=== PATIENT | male | born 1990 | race Caucasian/White ===

== ENCOUNTER 2021-06-16 19:37 | Emergency (ER) | payer BC ==
[~2021-06-16] VITALS: Ht 185.4 cm; Wt 95.3 kg
[2021-06-16 19:40] VITALS: BP_SYST 158
--- NOTE | 2021-06-16 19:40 | NUR ---
Placed in room 07 . Placed on scarfer operator, blood pressure machine and pulse oximeter. To gown for exam. Side rails up. will assume all care of patient.
--- NOTE | 2021-06-16 19:42 | NUR ---
Patient complaining of diffuse rash starting 1 hour prior to arrival after eating pepperoni pizza. Patient reports no allergies. Denies any shortness of breath, chest pain. Able to speak full sentences. Denies any pain
--- NOTE | 2021-06-16 19:44 | NUR ---
ER Dr. Andrew at bedside examining patient.
[2021-06-16] MEDS ORDERED: DIPHENHYDRAMINE INJ 50 MG/ML VIAL IVP ONE (19:45)
[2021-06-16] MEDS ORDERED: methylPREDNISolone SOD SUCC/PF 62.5 MG/ML VIAL IVP ONE (19:45)
[2021-06-16] MEDS ORDERED: FAMOTIDINE PF 20 MG/2 ML VIAL IVP ONE (19:45)
--- NOTE | 2021-06-16 19:47 | NUR ---
# 18 gauge angiocath placed to Left Ac. Use of asceptic technique. Opsite placed over site. Blood return noted. Flushed with 10 cc of normal saline. No evidence of infiltration noted. Patient tolerated well.
--- NOTE | 2021-06-16 20:32 | NUR ---
Patient's rash has improved. Redness has dissapated. Denies any pain
--- NOTE | 2021-06-16 21:23 | NUR ---
Dr. Andrew at bedside to reassess
--- NOTE | 2021-06-16 21:30 | NUR ---
Rash has completely resolved. VSS. Tolbert notified
[2021-06-16 21:40] VITALS: BP_SYST 122
--- NOTE | 2021-06-16 21:40 | NUR ---
Patient given written and verbal discharge instructions and verbalizes understanding. ER MD discussed with patient the results and treatment provided. Patient in stable condition. ID arm band removed. IV catheter removed intact and dressing applied, no active bleeding. No Rx given. Patient educated on pain management and to follow up with PMD. Pain Scale 0/10 Opportunity for questions provided and answered. Medication side effect fact sheet provided.
== END 2021-06-16 21:40 | disposition home or self-care (01) ==
LOC: SED 19:37
DX: T78.1XXA Other adverse food reactions, not elsewhere classified, initial encounter (principal); X58.XXXA Exposure to other specified factors, initial encounter
CPT/HCPCS: 96374; 96375; 99284; J1200; J2930; J3490